=== PATIENT | female | born 1995 | race Caucasian/White ===

== ENCOUNTER 2024-07-04 21:45 | Emergency (ER) | payer OTHER, SELFPAY ==
[2024-07-04 21:52] VITALS: BP 133/94
[2024-07-04 22:31] VITALS: BMI 18.3
[2024-07-04 23:37] LABS: % Basophils 0.5 % (0-2); % Eosinophils 1.5 % (0-6); % Immature Granulocytes 0.2 % (0-0.5); % Lymphocytes 36.1 % (20.5-51.1); % Monocytes 8.8 % (1.7-9.3); % Neutrophils 52.9 % (42.2-75.2); Absolute Eosinophils 0.1 10^3/uL (0-0.7); Absolute Lymphocytes 3.1 10^3/uL (1.2-3.4); Absolute Monocytes 0.8 10^3/uL (0.1-0.6); Absolute Neutrophils 4.5 10^3/uL (1.4-6.5); Hematocrit 35.5 % (37.0-47.0); Hemoglobin 12.7 g/dL (12.0-16.0); Mean Corp Hgb Conc. 35.8 g/dL (33.0-37.0); Mean Corpuscular Hgb 32.2 pg (27.0-31.0); Mean Corpuscular Volume 89.9 fL (81.0-99.0); Nucleated Red Blood Cells % 0 %; Platelet Count 300 10^3/uL (130-400); Red Blood Cell Count 3.95 10^6/uL (4.20-5.40); Red Cell Dist. Width 11.8 % (11.5-14.5); White Blood Cell Count 8.5 10^3/uL (4.8-10.8)
[2024-07-04 23:53] LABS: Blood Urea Nitrogen 13 mg/dl (7-17); Carbon Dioxide 25 mmol/L (22-30); Chloride 105 mmol/L (98-107); Estimated Creatinine Clearance 89 ml/min; Glucose 87 mg/dl (70-99); Magnesium 1.8 mg/dl (1.6-2.3); Potassium 3.6 mmol/L (3.5-5.1); Sodium 138 mmol/L (135-145); eGFR > 60.00
[2024-07-04 23:55] LABS: HCG, Serum Qualitative Screen Negative
--- NOTE | 2024-07-05 00:09 | ED.GENMED ---
History of Present Illness
General
Chief Complaint: Chest Pain
Time Seen by Provider: 07/04/24 23:12
History of Present Illness
History of Present Illness:
Patient is a 29-year-old woman presenting to the emergency department with palpitations and chest pain. Patient states for the past week she has had left-sided chest pain that comes and goes. Describes it as a ache. She is also been having
palpitations that she describes as a fluttering sensation. She also states that she has had mild shortness of breath. No nausea vomiting diaphoresis diarrhea. No family or personal history of cardiac disease or blood clot. She does state that
she recently traveled to [facility]. She is not on oral contraceptive. She does note that there is been significant life stressors and she is anxious. She also notes that she has 4 shots of espresso and 2 cups of caffeine occasionally. No recent
illnesses. The pain is not exertional. It is not pleuritic. It is not reproducible. She does state that intermittently and migrates from the left side to the right side
Past History
Past History
ED Past Medical History: None
ED Past Surgical History: None
Social History
Tobacco: Non-smoker
Alcohol: None
Drug: None
Living: with family
Employment: Student
Family History
Family History: Other (nonsig)
Phy Exam
Physical Exam
Physical Exam:
GENERAL: in no acute distress
HEENT: normocephalic, extraocular movements intact, moist oral mucosa
NECK: normal inspection
RESPIRATORY: no respiratory distress, clear to auscultation bilaterally
CARDIOVASCULAR: regular rate and rhythm
ABDOMEN/: soft, non-distended, non-tender to palpation, no rebound or guarding
EXTREMITIES: non-tender, no edema/swelling
NEUROLOGIC: awake and alert, moves all extremities
SKIN: warm
Scores
Heart Score for Chest Pain Patients
STEMI patient?: Not applicable
Course
Orders/Labs/Results
Orders:
Orders
07/04/24 21:58
EKG with chest pain [ECG as needed] As Directed
ECG as needed for:: Chest Pain
07/04/24 23:12
Test Result ONCE
07/04/24 23:20
Basic Metabolic Panel Urgent
Complete Blood Count/With Diff Urgent
HCG, Serum Qualitative Screen Urgent
Magnesium Urgent
Thyroid profile [TSH Reflex To Free T4] Urgent
07/05/24 00:05
D-Dimer Urgent
Troponin I Urgent
Abnormal Lab Results
07/04/24
23:20
RBC 3.95 L 10^6/uL
(4.20-5.40)
Hct 35.5 L %
(37.0-47.0)
MCH 32.2 H pg
(27.0-31.0)
Absolute Monos (auto) 0.8 H 10^3/uL
(0.1-0.6)
07/04/24 23:20
07/04/24 23:20
Vital Signs
Initial and Last Documented VS:
Initial Vital Signs
Temp Pulse Resp BP Pulse Ox
98.1 F 97 16 133/94 100
07/04/24 21:52 07/04/24 21:52 07/04/24 21:52 07/04/24 21:52 07/04/24 21:52
Last Documented Vital Signs
Temp Pulse Resp BP Pulse Ox
98.1 F 62 12 133/94 99
07/04/24 21:52 07/05/24 00:45 07/05/24 00:45 07/04/24 21:52 07/04/24 23:15
MDM/Problems Addressed
Differential Diagnosis Includes:
Patient is a 29-year-old woman presenting to the emergency department palpitations chest pain and shortness of breath. On arrival patient with a heart rate in the 60s. Exam is reassuring. Palpitations could be arrhythmia versus metabolic
derangement versus thyroid abnormality. Chest pain and shortness of breath could be PE though less likely. She does have a risk factor of recent travel so we will proceed with dimer. Patient is extremely nervous about heart disease and after
shared decision making we will proceed with troponin. The pain has been ongoing for over a week so we will proceed with single troponin. EKG per my interpretation normal sinus rhythm.
*Critical Care Note
Total Time (30-74mins, 75-104mins- exclusive of procedures): Not Applicable
Update Note
Update Note:
Blood work is unremarkable. Patient without any arrhythmia on monitor. Will discharge at this time.
ED Attending Note
-
Portions of this chart may have been created with voice recognition software.� Occasional wrong word or��sound alike� substitutions may have occurred due to the inherent limitations of voice recognition software.
Discharge Plan
Departure
Patient Disposition: Home (Routine Discharge)
Date of Disposition: 07/05/24
Time of Disposition: 01:38
Patient with high blood pressure during this ER visit?: No
Discharge Problem:
Palpitations, Chest pain
Instructions: Chest Pain PCP Follow Up
Prescriptions:
New
hydroxyzine HCl 10 mg tablet
10 mg PO Q8H PRN (Reason: nausea and vomiting) Qty: 14 0RF
Referrals:
NONE,* [Family Provider] -
Activity Restrictions/Additional Instructions:
You were evaluated in the Emergency Department today for chest pain. Your evaluation has shown no signs of medical conditions requiring emergent intervention at this time, however we recommend that you follow up with your primary care physician or
your day camp counselor as soon as possible for further testing as an outpatient.
Please schedule an appointment for follow up with your primary care physician as soon as possible.
Return to the Emergency Department if you experience worsening or uncontrolled chest pain, shortness of breath, light headedness, feeling faint, nausea, vomiting, or any other concerning symptoms.
Thank you for choosing us for your care.
Interventions
Interventions:
*Risk Screen - Suicide Last Done: 07/04/24 21:52
*General Assessment Last Done: 07/04/24 22:31
*Neglect/Abuse Screening Last Done: 07/04/24 21:52
*ED- Fall Risk Assessment Last Done: 07/04/24 22:31
*ED COVID-19 Vaccine History Last Done: 07/04/24 22:31
ED- Cardiac Assessment Last Done: 07/04/24 22:31
ED-Psychological Assessment Last Done: 07/04/24 22:31
Discharge Date and Time
Print Language: GABONESE
[2024-07-05 00:23] LABS: TSH Reflex To Free T4 1.42 uIU/ml (0.47-4.68)
[2024-07-05 01:18] LABS: D-Dimer < 0.27 ug/mlFEU (0.00-0.50)
[2024-07-05 01:24] LABS: Troponin I < 0.012 ng/ml
== END 2024-07-05 01:51 | disposition home or self-care (01) ==
LOC: EMR 21:45
PROVIDERS: EMERGENCY PHYSICIAN Student in an Organized Health Care Education/Training Program
DX: R00.2 Palpitations (principal); R07.89 Other chest pain; R06.02 Shortness of breath
CPT/HCPCS: 99283; 80048; 83735; 84443; 84484; 84703; 85025; 85379; 93005